=== PATIENT | female | born 1955 | race African-American/Black ===

== ENCOUNTER 2022-03-04 07:07 | Day surgery (SDC) | payer MEDICARE, SELFPAY ==
[2022-02-24 14:16] VITALS: BMI 40.9
--- NOTE | 2022-02-25 13:35 | HO.ANESPROP2 ---
Documented by User: Vicki Leyva NP 03/03/22 08:41 HPI - Anesthesia Eval Consult details Narrative: 66yo F for Colonoscopy Cardiac optimized without further work up. To stay on ASA if possible. (Abnormal nuc stress, but patient asymptomatic and tolerates >4 mets) *Multiple Med Allergy* PMFSH Active Problems Active Problems: All Active Problems (Updated 02/24/22 @ 15:22 by Barbie Gar, RN) Bilateral acute otitis media (Acute) Past Medical History Medical History Asthma Back pain Chest pain Diabetes Elevated cholesterol GERD (gastroesophageal reflux disease) HTN (hypertension) Hx of skin cancer, basal cell Irritable bowel syndrome (IBS) Lumbar disc disease DWAYNE on CPAP Surgical History Surgical History History of esophagogastroduodenoscopy (EGD) Hx of appendectomy Hx of colonoscopy Hx of partial thyroidectomy Hx of tubal ligation Social History Social History Are you a primary care director rn to a significant other at home: Yes (mother, will have help post-op) Do you presently have visiting nurse or other home services: Yes (services at home for mother) Patient Tobacco Use Status: Never used Tobacco Use of substances other than those prescribed or required for medical reasons: No Have you been hit, kicked, punched, or otherwise hurt by someone within the past year? If so, by whom?: No Are you DNR?: No Advance Directives: No Advance Directives Information Provided: No Advance Directives on File: No Meds Allergies Allergy/AdvReac Type Severity Reaction Status Date / Time cefaclor [From CECLOR] Allergy Severe ITCHING Verified 02/24/22 14:11 ciprofloxacin [CIPROFLOXACIN] Allergy Severe ITCHING Verified 02/24/22 14:11 erythromycin base Allergy Severe Itching, Verified 02/24/22 14:11 [ERYTHROMYCIN BASE] hives Penicillins [PENICILLINS] Allergy Severe ITCHING Verified 02/24/22 14:11 Sulfa (Sulfonamide Allergy Severe Itching Verified 02/24/22 14:11 Antibiotics) sulfamethoxazole Allergy Severe ITCHING Verified 02/24/22 14:11 [From BACTRIM] trimethoprim [From BACTRIM] Allergy Severe ITCHING Verified 02/24/22 14:11 amlodipine Allergy Hives Verified 02/24/22 15:21 isosorbide Allergy Headache Verified 02/24/22 15:21 magnesium sulfate Allergy Itching Verified 02/24/22 14:12 clindomycin Allergy Severe Itching Uncoded 02/24/22 14:11 IC acetic Allergy Severe Itching Uncoded 02/24/22 14:11 ENVIRONMENTAL Allergy Unknown HEADACHES Uncoded 02/24/22 14:12 Home Medications Medication Instructions Recorded Confirmed Last Taken Type acetaminophen 500 mg tablet 500 mg PO Q6-8H PRN 08/29/21 02/24/22 Unknown History albuterol sulfate 2.5 mg INHALATION Q4-8H PRN 08/29/21 02/24/22 Unknown History albuterol sulfate 90 mcg/actuation 2 puff INHALATION Q4-6H PRN 08/29/21 02/24/22 Unknown History aerosol inhaler (ProAir HFA) allopurinol 300 mg tablet 300 mg PO DAILY 08/29/21 02/24/22 Unknown History epinephrine 0.3 mg/0.3 mL 0.3 ml IM ONCE PRN 08/29/21 02/24/22 Unknown History injection, auto-injector fluticasone propionate 50 0 mcg INTRANASAL 08/29/21 Unknown History mcg/actuation nasal spray,suspension gabapentin 300 mg capsule 300 mg PO TID 08/29/21 02/24/22 Unknown History hydrochlorothiazide 25 mg tablet 25 mg PO DAILY 08/29/21 02/24/22 Unknown History losartan 50 mg tablet 50 mg PO DAILY 08/29/21 03/04/22 03/04/22 06:45 History metformin 850 mg tablet 850 mg PO TID 08/29/21 02/24/22 Unknown History montelukast 10 mg tablet 10 mg PO BEDTIME 08/29/21 02/24/22 Unknown History pravastatin 80 mg tablet 80 mg PO BEDTIME 08/29/21 02/24/22 Unknown History aspirin 81 mg tablet,delayed 81 mg PO DAILY 02/24/22 03/04/22 03/03/22 History release cetirizine 10 mg capsule (Zyrtec) 10 mg PO DAILY 02/24/22 02/24/22 Unknown History famotidine 20 mg tablet (Pepcid AC) 20 mg PO DAILY 02/24/22 02/24/22 Unknown History Exam Exam Date and Time: February 25, 2022 1335 Height,Weight and Vital Signs: Height 5 ft 5 in Weight 111.584 kg Pertinent Lab Results Pertinent Lab Results: CBC and BMP WNL at outside facility 11/2021 Narrative Narrative: EKG 11/2021 NSR @ 69 with Q waves noted in inferior leads No significant change when compared with previous Nuc stress 10/2021 small in size and moderate intensity reversible defect in apical anteroseptal wall suggestive of ischemia small in size moderate intensity fixed perfusion defect in the mid to apical inferior lateral wall with partial reversibility suggestive of an infact with johnny-infarct ischemia Assessment and Plan Assessment Anesthesia Assessment: Chart Reviewed Documented by User: Simon Amezcua MD 03/04/22 10:07 [facility] Past Medical History Medical History Asthma Back pain Chest pain Diabetes Elevated cholesterol GERD (gastroesophageal reflux disease) HTN (hypertension) Hx of skin cancer, basal cell Irritable bowel syndrome (IBS) Lumbar disc disease DWAYNE on CPAP Functional capacity: uses cane/walker Family History Family history of problems with anesthesia: No Surgical History Surgical History History of esophagogastroduodenoscopy (EGD) Hx of appendectomy Hx of colonoscopy Hx of partial thyroidectomy Hx of tubal ligation History of Problems with Anesthesia: No Social History Social History Are you a primary care director rn to a significant other at home: Yes (mother, will have help post-op) Do you presently have visiting nurse or other home services: Yes (services at home for mother) Patient Tobacco Use Status: Never used Tobacco Use of substances other than those prescribed or required for medical reasons: No Have you been hit, kicked, punched, or otherwise hurt by someone within the past year? If so, by whom?: No Are you DNR?: No Advance Directives: No Advance Directives Information Provided: No Advance Directives on File: No Meds Allergies Allergy/AdvReac Type Severity Reaction Status Date / Time cefaclor [From CECLOR] Allergy Severe ITCHING Verified 02/24/22 14:11 ciprofloxacin [CIPROFLOXACIN] Allergy Severe ITCHING Verified 02/24/22 14:11 erythromycin base Allergy Severe Itching, Verified 02/24/22 14:11 [ERYTHROMYCIN BASE] hives Penicillins [PENICILLINS] Allergy Severe ITCHING Verified 02/24/22 14:11 Sulfa (Sulfonamide Allergy Severe Itching Verified 02/24/22 14:11 Antibiotics) sulfamethoxazole Allergy Severe ITCHING Verified 02/24/22 14:11 [From BACTRIM] trimethoprim [From BACTRIM] Allergy Severe ITCHING Verified 02/24/22 14:11 amlodipine Allergy Hives Verified 02/24/22 15:21 isosorbide Allergy Headache Verified 02/24/22 15:21 magnesium sulfate Allergy Itching Verified 02/24/22 14:12 clindomycin Allergy Severe Itching Uncoded 02/24/22 14:11 IC acetic Allergy Severe Itching Uncoded 02/24/22 14:11 ENVIRONMENTAL Allergy Unknown HEADACHES Uncoded 02/24/22 14:12 Home Medications Medication Instructions Recorded Confirmed Last Taken Type acetaminophen 500 mg tablet 500 mg PO Q6-8H PRN 08/29/21 02/24/22 Unknown History albuterol sulfate 2.5 mg INHALATION Q4-8H PRN 08/29/21 02/24/22 Unknown History albuterol sulfate 90 mcg/actuation 2 puff INHALATION Q4-6H PRN 08/29/21 02/24/22 Unknown History aerosol inhaler (ProAir HFA) allopurinol 300 mg tablet 300 mg PO DAILY 08/29/21 02/24/22 Unknown History epinephrine 0.3 mg/0.3 mL 0.3 ml IM ONCE PRN 08/29/21 02/24/22 Unknown History injection, auto-injector fluticasone propionate 50 0 mcg INTRANASAL 08/29/21 Unknown History mcg/actuation nasal spray,suspension gabapentin 300 mg capsule 300 mg PO TID 08/29/21 02/24/22 Unknown History hydrochlorothiazide 25 mg tablet 25 mg PO DAILY 08/29/21 02/24/22 Unknown History losartan 50 mg tablet 50 mg PO DAILY 08/29/21 03/04/22 03/04/22 06:45 History metformin 850 mg tablet 850 mg PO TID 08/29/21 02/24/22 Unknown History montelukast 10 mg tablet 10 mg PO BEDTIME 08/29/21 02/24/22 Unknown History pravastatin 80 mg tablet 80 mg PO BEDTIME 08/29/21 02/24/22 Unknown History aspirin 81 mg tablet,delayed 81 mg PO DAILY 02/24/22 03/04/22 03/03/22 History release cetirizine 10 mg capsule (Zyrtec) 10 mg PO DAILY 02/24/22 02/24/22 Unknown History famotidine 20 mg tablet (Pepcid AC) 20 mg PO DAILY 02/24/22 02/24/22 Unknown History Exam Airway Mallampati Class: III Partial: Upper and Lower Loose/Missing/Broken Teeth: Yes Heart: S1 , S2 Lungs: b/l breath sounds Assessment and Plan Assessment Anesthesia Assessment: Anesthesia Plan Discussed Final Anesthetic Review Family History of Problems with Anesthesia: No History of Problems with Anesthesia: No NPO: Yes ASA Class: III Final Preanesthetic Review: Meds/Allgs Chart Reviewed, Consent Obtained/Reviewed and Anes Risks/Benef Reviewed Patient Risk: High Procedure Risk: Intermediate Anesthetic Plan Anesthetic Plan: MAC: Disposition: Standard PACU
[2022-03-04 07:59] LABS: Glucose, Whole Blood 170 mg/dL (60-115)
[2022-03-04 08:07] VITALS: BP 145/90; PULSE 82; RESP 18; TEMP 36.4; O2SAT 99
--- NOTE | 2022-03-04 08:34 | PC.NURSE ---
Difficult IV access, attempted by Anesthesia, inserted by Ever Cao RN
[2022-03-04] MEDS: Lactated Ringers 1,000 ML 100 ML IVCONT (08:35)
[2022-03-04 09:42] VITALS: BP 105/51; PULSE 104; RESP 16; TEMP 36.3; O2SAT 97
--- NOTE | 2022-03-04 09:46 | PM.OP ---
Brief Operative Note Date of Service: 03/04/22 Pre-op diagnosis: Screening Post-op diagnosis: other (Colon polyps) Procedure: Colonoscopy to the cecum with hot snare polypectomy x3 with placement of 1 Resolution clip x 3--all in the transverse colon Surgeon: Norman Aquino Anesthesia: MAC Was an Broaching Machine Set Up Operator used for this Procedure?: No Estimated blood loss (mL): 0 Pathology: other (A. Transverse colon polyps x 3) Condition: stable Disposition: PACU
[2022-03-04 09:57] VITALS: BP 119/64; PULSE 98; RESP 18; TEMP 36.7; O2SAT 97
--- NOTE | 2022-03-04 20:46 | OP_ITS ---
SURGEON: Norman Aquino MD INDICATIONS: The patient presents for evaluation of personal history of tubular adenomas of the colon and colorectal cancer screening. Full consent has been obtained from her for this, including risks of bleeding and perforation. Full consent has been obtained from her for this, including risks of bleeding and perforation. PREOPERATIVE DIAGNOSIS: Colorectal cancer screening and personal history of tubular adenomas of the colon. POSTOPERATIVE DIAGNOSIS: Colorectal cancer screening and personal history of tubular adenomas of the colon, colon polyps, diverticulosis, and internal hemorrhoids. PROCEDURE PERFORMED: Colonoscopy to the cecum with hot snare polypectomy x 3 and placement of a resolution clip on each polypectomy site. ESTIMATED BLOOD LOSS: COMPLICATIONS: ANESTHESIA: Medication used, monitored anesthesia care. ASSISTANTS: SPECIMENS: DESCRIPTION OF PROCEDURE: The patient was placed in the left lateral decubitus position the digital rectal exam revealed no abnormalities. The [employer] video pediatric colonoscope was entered into the rectum and advanced to the cecum with the assistance of abdominal wall pressure. Once in the cecum I did identify normal-appearing cecal pouch with appendiceal orifice and a normal-appearing ileocecal valve. The entire cecum and ileocecal valve appeared normal. The scope was slowly withdrawn assessing all mucosal surfaces carefully. Preparation was excellent. In the transverse colon was a previously noted lipoma that had been biopsied on previous exams, and therefore repeat biopsies were not obtained. In the transverse colon were 3 polyps. One was approximately 8 mm and was removed by hot snare polypectomy and recovered by suction. The polypectomy site appeared clean, without any sign of residual polyp nor bleeding. I did place a single resolution clip on the polypectomy site with good deployment and good hemostasis. Just distal to this were 2 approximately 1.2 cm polyps on short stalks that were adjacent to each other. These were each removed by hot snare polypectomy, and both polyps were retrieved with the retrieval net and drawn out of the patient. The colonoscope was then readvanced back to the polypectomy site, which appeared clean, without any sign of residual polyp nor bleeding. I placed a single resolution clip on each of the polypectomy sites with good deployment and good hemostasis. Of note, all 3 polyps were placed in the same container. I did not visualize any other polyps, colitis, nor angiodysplasia. There was a mild amount of sigmoid diverticulosis. In the rectum, the scope was retroflexed visualizing internal hemorrhoids, but no other pathology. The rectal mucosa appeared normal. Scope was straightened and withdrawn from the patient. She tolerated the procedure well and was returned to the recovery area in stable condition. IMPRESSION: 1. Colon polyps, status post hot snare polypectomy and placement of resolution clips. 2. Diverticulosis. 3. Internal hemorrhoids. PLAN: The results of the pathology will be checked, I would recommend a repeat colonoscopy in 3 years for further screening and surveillance. She was advised to resume her aspirin in 48 hours. She will otherwise see me on a p.r.n. basis. This has been discussed with her . MD ADILENE Kemp/HALEY / [id number] MTDD
== END 2022-03-04 10:37 | disposition home or self-care (01) ==
PROVIDERS: PCP Internal Medicine; Visit Provider Internal Medicine
PROC: 0DJD8ZZ Inspection of Lower Intestinal Tract, Via Natural or Artificial Opening Endoscopic (ICD-10-PCS; CPT 45378; principal; 2022-03-04 08:20)
DX: Z12.11 Encounter for screening for malignant neoplasm of colon (principal); Z86.010 Personal history of colon polyps; D12.3 Benign neoplasm of transverse colon; K57.30 Diverticulosis of large intestine without perforation or abscess without bleeding; K64.8 Other hemorrhoids; K58.2 Mixed irritable bowel syndrome; K21.9 Gastro-esophageal reflux disease without esophagitis; D17.5 Benign lipomatous neoplasm of intra-abdominal organs; G47.33 Obstructive sleep apnea (adult) (pediatric); I10 Essential (primary) hypertension; E78.5 Hyperlipidemia, unspecified; J45.909 Unspecified asthma, uncomplicated; E11.9 Type 2 diabetes mellitus without complications; Z79.82 Long term (current) use of aspirin; Z79.51 Long term (current) use of inhaled steroids; Z79.84 Long term (current) use of oral hypoglycemic drugs; Z86.16 Personal history of COVID-19
CPT/HCPCS: 45385; 82947; 88305; J2370

== ENCOUNTER 2023-10-12 07:43 | Outpatient (REF) | payer MEDICARE, SELFPAY ==
--- NOTE | ~2023-10-12 | XR_ITS ---
EXAMINATION: XR HIP, RIGHT CLINICAL INFORMATION: Right hip pain COMPARISON: 04/25/2018 pelvis TECHNIQUE: Two views of the right hip. FINDINGS: Moderate right hip joint narrowing and right greater trochanteric spurring again seen. No fracture or dislocation. Bony pelvis is intact. Degenerative changes lower lumbar spine. SI joints within normal limits. Pelvic phleboliths. XR/XR hip RT min 2V IMPRESSION: Moderate right hip joint narrowing and right greater trochanteric spurring. No acute bony pathology.
== END 2023-10-12 07:44 | disposition home or self-care (01) ==
LOC: HO.HOSX 07:43
PROVIDERS: Visit Provider Orthopaedic Surgery
DX: M16.11 Unilateral primary osteoarthritis, right hip (principal)
CPT/HCPCS: 73502; 99202

== ENCOUNTER 2023-10-12 10:10 | Outpatient (AMB) | payer MEDICARE, SELFPAY ==
--- NOTE | 2023-10-12 10:31 | MHC.OFFVIS ---
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 Patient reports cortisone injection was done about 15 years ago at [facility] that provided her relief until recently. She is interested in discussing injection today. She has tried Tylenol and anti-inflammatory medicines which gave her only mild relief. She would like to hold off on surgery for as possible. Allergies cefaclor [From CECLOR] Allergy (Severe, Verified 10/12/23 10:58) ITCHING ciprofloxacin [CIPROFLOXACIN] Allergy (Severe, Verified 10/12/23 10:58) ITCHING erythromycin base [ERYTHROMYCIN BASE] Allergy (Severe, Verified 10/12/23 10:58) Itching, hives Penicillins [PENICILLINS] Allergy (Severe, Verified 10/12/23 10:58) ITCHING Sulfa (Sulfonamide Antibiotics) Allergy (Severe, Verified 10/12/23 10:58) Itching sulfamethoxazole [From BACTRIM] Allergy (Severe, Verified 10/12/23 10:58) ITCHING trimethoprim [From BACTRIM] Allergy (Severe, Verified 10/12/23 10:58) ITCHING amlodipine Allergy (Verified 10/12/23 10:58) Hives clindamycin Allergy (Verified 10/12/23 10:58) Itching insulin detemir [From Levemir U-100 Insulin] Allergy (Verified 10/12/23 10:58) muscle cramping isosorbide Allergy (Verified 10/12/23 10:58) Headache liraglutide [From Victoza] Allergy (Verified 10/12/23 10:58) dizzy magnesium sulfate Allergy (Verified 10/12/23 10:58) Itching pregabalin [From Lyrica] Allergy (Verified 10/12/23 10:58) burning sensation on skin sucralfate [From Carafate] Allergy (Verified 10/12/23 10:58) hives/urticaria IC acetic Allergy (Severe, Uncoded 10/12/23 10:58) Itching ENVIRONMENTAL Allergy (Unknown, Uncoded 10/12/23 10:58) HEADACHES lantus Allergy (Uncoded 10/12/23 10:58) Muscle Pain vitamin B12 Allergy (Uncoded 10/12/23 10:58) Unknown Medication List - Last Reconciled 10/12/23 by Arturo Page MD acetaminophen 500 mg PO Q6-8H PRN albuterol sulfate 90 mcg/actuation (ProAir HFA) 2 puffs inhalation Q4-6H PRN albuterol sulfate 2.5 mg inhalation Q4-8H PRN allopurinol 300 mg PO DAILY aspirin 81 mg PO DAILY cetirizine (Zyrtec) 10 mg PO DAILY doxycycline hyclate 100 mg PO BID 7 days epinephrine 0.3 mL IM ONCE PRN famotidine (Pepcid AC) 20 mg PO DAILY fluticasone propionate 50 mcg/actuation 0 mcg intranasal gabapentin 300 mg PO TID hydrochlorothiazide 25 mg PO DAILY lancets (Accu-Chek Softclix Lancets) As directed losartan 50 mg PO DAILY metformin 850 mg PO TID montelukast 10 mg PO BEDTIME nifedipine ER 30 mg PO DAILY pravastatin 80 mg PO BEDTIME PFSH Medical History (Updated 10/12/23 @ 11:04 by Arturo Page MD) Chest pain Hx of skin cancer, basal cell Back pain Lumbar disc disease Diabetes Irritable bowel syndrome (IBS) GERD (gastroesophageal reflux disease) DWAYNE on CPAP Asthma Elevated cholesterol HTN (hypertension) Surgical History Hx of tubal ligation Hx of appendectomy Hx of partial thyroidectomy Hx of colonoscopy History of esophagogastroduodenoscopy (EGD) (Updated 10/12/23 @ 10:47 by ISREAL Brown) Are you a primary health care marketing manager to a significant other at home: Yes (mother, will have help post-op) Do you presently have visiting nurse or other home services: Yes (services at home for mother) Patient Tobacco Use Status: Never used Tobacco Current occupational status: retired Physical Exam Vital Signs: BMI result Body Mass Index 39.3 Const Other: Well-nourished well-developed very friendly female awake alert and oriented x3 in no acute distress Extrem Other: Bilateral lower extremity examination shows good capillary refill, no skin lesions noted, normal sensation light touch Right hip examination shows almost full range of motion when compared to her left hip, moderate discomfort with range of motion, no tenderness over her bursa Results Reviewed Results Reviewed: X-rays of the patient's right hip show moderate diffuse joint space narrowing, no acute bony abnormalities Assessment & Plan Assessment & Plan (1) Arthritis of right hip: Code(s): M16.11 - Unilateral primary osteoarthritis, right hip Plan: Ms. Perales presents with right hip pain due to early degenerative joint disease. I had a lengthy discussion with the patient regarding the treatment options. She wishes to hold off on surgery for as long as possible. She has gotten good relief from an intra-articular injection in the past. Thus, I will arrange for her to have another intra-articular right hip injection under fluoroscopic guidance. She will follow up with me on an as-needed basis. Feel free to call me at any time should questions regarding her orthopedic management arise. Thank you very much for asking me to see this very friendly patient. Orders: Orders XR hip RT min 2V Today M25.551 - Pain in right hip Referrals Pain Management Referral M16.11 - Unilateral primary osteoarthritis, right hip Coding Level of Care Code New Pt Level 2 (47315) Diagnoses Arthritis of right hip M16.11
[2023-10-12 10:48] VITALS: BMI 39.3
== END 2023-10-12 11:05 | disposition home or self-care (01) ==
PROVIDERS: PCP Internal Medicine; Visit Provider Orthopaedic Surgery
DX: M16.11 Unilateral primary osteoarthritis, right hip (principal)
CPT/HCPCS: 99202

== ENCOUNTER 2023-11-10 05:39 | Outpatient (REF) | payer MEDICARE, SELFPAY ==
--- NOTE | ~2023-11-10 | FL_ITS ---
EXAMINATION: XR FLUOROSCOPY WITH IMAGES CLINICAL INFORMATION: Unilateral primary osteoarthritis, right hip. Right hip injection. COMPARISON: None available. TECHNIQUE: Fluoroscopy Supervised By: Dr. Billy Jackson. Fluoroscopy Time: 0.1 minute. Cumulative Dose: 3.40 mGy. DAP: 0.645 Gycm2. Images: 3. FINDINGS: Images demonstrate needle placement and contrast injection of the right hip joint FL/FL guidance in treatment room IMPRESSION: Fluoroscopic guidance for right hip injection.
== END 2023-11-10 05:40 | disposition home or self-care (01) ==
LOC: CF 05:39
PROVIDERS: Visit Provider Internal Medicine
DX: M16.11 Unilateral primary osteoarthritis, right hip (principal)
CPT/HCPCS: 20610; J2795; J3301; Q9967

== ENCOUNTER 2023-11-10 09:38 | Outpatient (AMB) | payer MEDICARE, SELFPAY ==
[2023-11-10 09:43] VITALS: BP 130/66; PULSE 78; RESP 12; O2SAT 98
--- NOTE | 2023-11-10 09:43 | MHC.OFFVIS ---
Intake Vital Signs 11/10/23 09:43 11/10/23 10:31 BP 130/66 120/64 Blood Pressure Location Lt brachial Lt brachial Position Sitting Sitting Respiration 12 12 Pulse 78 78 Pulse Source Pulse Oximeter Pulse Oximeter Pulse Oximetry (%) 98 98 Oxygen Delivery Method Room Air Room Air Intake Visit Reasons: Right intraarticular hip Inj Allergies cefaclor [From CECLOR] Allergy (Severe, Verified 11/10/23 09:43) ITCHING ciprofloxacin [CIPROFLOXACIN] Allergy (Severe, Verified 11/10/23 09:43) ITCHING erythromycin base [ERYTHROMYCIN BASE] Allergy (Severe, Verified 11/10/23 09:43) Itching, hives Penicillins [PENICILLINS] Allergy (Severe, Verified 11/10/23 09:43) ITCHING Sulfa (Sulfonamide Antibiotics) Allergy (Severe, Verified 11/10/23 09:43) Itching sulfamethoxazole [From BACTRIM] Allergy (Severe, Verified 11/10/23 09:43) ITCHING trimethoprim [From BACTRIM] Allergy (Severe, Verified 11/10/23 09:43) ITCHING amlodipine Allergy (Verified 11/10/23 09:43) Hives clindamycin Allergy (Verified 11/10/23 09:43) Itching insulin detemir [From Levemir U-100 Insulin] Allergy (Verified 11/10/23 09:43) muscle cramping isosorbide Allergy (Verified 11/10/23 09:43) Headache liraglutide [From Victoza] Allergy (Verified 11/10/23 09:43) dizzy magnesium sulfate Allergy (Verified 11/10/23 09:43) Itching pregabalin [From Lyrica] Allergy (Verified 11/10/23 09:43) burning sensation on skin sucralfate [From Carafate] Allergy (Verified 11/10/23 09:43) hives/urticaria IC acetic Allergy (Severe, Uncoded 11/10/23 09:43) Itching ENVIRONMENTAL Allergy (Unknown, Uncoded 11/10/23 09:43) HEADACHES lantus Allergy (Uncoded 11/10/23 09:43) Muscle Pain vitamin B12 Allergy (Uncoded 11/10/23 09:43) Unknown HPI Right intraarticular hip Inj HPI Details Patient is a 68-year-old female with a known history of right hip osteoarthritis referred by Dr. Page for an intra-articular right hip injection under fluoroscopy. Patient denies any recent cough, cold, infection, fever or other significant changes in medical history since her meeting with Dr. Page. [facility] Medical History (Updated 10/12/23 @ 11:04 by Arturo Page MD) Chest pain Hx of skin cancer, basal cell Back pain Lumbar disc disease Diabetes Irritable bowel syndrome (IBS) GERD (gastroesophageal reflux disease) DWAYNE on CPAP Asthma Elevated cholesterol HTN (hypertension) Surgical History Hx of tubal ligation Hx of appendectomy Hx of partial thyroidectomy Hx of colonoscopy History of esophagogastroduodenoscopy (EGD) Social History (Updated 10/12/23 @ 10:47 by ISREAL Brown) Are you a primary care transition manager to a significant other at home: Yes (mother, will have help post-op) Do you presently have visiting nurse or other home services: Yes (services at home for mother) Patient Tobacco Use Status: Never used Tobacco Current occupational status: retired Physical Exam Vital Signs: Last Vital Signs Pulse 78 11/10/23 10:31 Resp 12 11/10/23 10:31 BP 120/64 11/10/23 10:31 Pulse Ox 98 11/10/23 10:31 Oxygen Delivery Method Room Air 11/10/23 10:31 Office Procedures Joint Injection/Drain Joint Injection/Drain Details: Hip Intra-articular Injection, fluoroscopy guided, Right After informed written consent was obtained, the patient was placed in the left lateral position. Pre-procedure oxygen saturation, heart rate, and blood pressure were recorded. The skin was prepped with Chloroprep, and draped in a sterile fashion. With the use of fluroscopy the hip joint was identified. With a 25-gauge 1.5 hypodermic needle 0.75% lidocaine was injected subcutaneously over the entry site. A 22-gauge 3.5 spinal needle was then advanced toward the junction of the joint capsule and femoral neck, using a lateral access approach. Once in position, and after negative aspiration, 0.5mL of Omnipaque was injected outlining the joint capsule followed by injection of 40mg Kenalog mixed with 0.5% ropivacaine (3mL total). There was no evidence of paresthesias throughout needle placement. The stylet was replaced and then the needle was withdrawn. The patient tolerated the procedure well and there was no evidence of procedural complications. EBL: <1cc Coding 41879 - Glenohumeral/Tronchanteric Bursa/Intraarticular Procedure code (CPT) selection complete Assessment & Plan Assessment & Plan (1) Arthritis of right hip: Code(s): M16.11 - Unilateral primary osteoarthritis, right hip Plan Patient is status post right hip intra-articular triamcinolone injection under fluoroscopic guidance. Patient tolerated procedure well and was discharged home in stable condition with discharge instructions. All questions were answered. She will follow-up with us or Dr. Page as needed. Orders: Orders FL guidance in treatment room Today M16.11 - Unilateral primary osteoarthritis, right hip Coding Level of Care Code Procedure Only Diagnoses Arthritis of right hip M16.11 CPT Codes Coding - Joint 7: 93320 - Glenohumeral/Tronchanteric Bursa/Intraarticular ([id number])
[2023-11-10 10:31] VITALS: BP 120/64; PULSE 78; RESP 12; O2SAT 98
== END 2023-11-10 10:29 | disposition home or self-care (01) ==
LOC: HO.PMCPRC 09:38
PROVIDERS: PCP Internal Medicine; Visit Provider Internal Medicine
DX: M16.11 Unilateral primary osteoarthritis, right hip (principal)
CPT/HCPCS: 20610; 77002

== ENCOUNTER 2023-11-22 09:32 | Outpatient (AMB) | payer MEDICARE, SELFPAY ==
--- NOTE | 2023-11-22 09:34 | MHC.OFFVIS ---
Intake Vital Signs 11/22/23 09:42 Height 5 ft 5.5 in Weight 237 lb BMI 38.8 Blood Pressure Location Lt brachial Position Sitting Respiration 12 Pulse 84 Pulse Source Pulse Oximeter Pulse Oximetry (%) 97 Oxygen Delivery Method Room Air Intake Visit Reasons: Unilateral Primary Osteoarthritis/Right Hip/conf Allergies cefaclor [From CECLOR] Allergy (Severe, Verified 11/22/23 09:43) ITCHING ciprofloxacin [CIPROFLOXACIN] Allergy (Severe, Verified 11/22/23 09:43) ITCHING erythromycin base [ERYTHROMYCIN BASE] Allergy (Severe, Verified 11/22/23 09:43) Itching, hives Penicillins [PENICILLINS] Allergy (Severe, Verified 11/22/23 09:43) ITCHING Sulfa (Sulfonamide Antibiotics) Allergy (Severe, Verified 11/22/23 09:43) Itching sulfamethoxazole [From BACTRIM] Allergy (Severe, Verified 11/22/23 09:43) ITCHING trimethoprim [From BACTRIM] Allergy (Severe, Verified 11/22/23 09:43) ITCHING amlodipine Allergy (Verified 11/22/23 09:43) Hives clindamycin Allergy (Verified 11/22/23 09:43) Itching insulin detemir [From Levemir U-100 Insulin] Allergy (Verified 11/22/23 09:43) muscle cramping isosorbide Allergy (Verified 11/22/23 09:43) Headache liraglutide [From Victoza] Allergy (Verified 11/22/23 09:43) dizzy magnesium sulfate Allergy (Verified 11/22/23 09:43) Itching pregabalin [From Lyrica] Allergy (Verified 11/22/23 09:43) burning sensation on skin sucralfate [From Carafate] Allergy (Verified 11/22/23 09:43) hives/urticaria IC acetic Allergy (Severe, Uncoded 11/22/23 09:43) Itching ENVIRONMENTAL Allergy (Unknown, Uncoded 11/22/23 09:43) HEADACHES lantus Allergy (Uncoded 11/22/23 09:43) Muscle Pain vitamin B12 Allergy (Uncoded 11/22/23 09:43) Unknown Medication List - Last Reconciled 11/22/23 by Clary Nicholson LPN acetaminophen 500 mg PO Q6-8H PRN albuterol sulfate 90 mcg/actuation (ProAir HFA) 2 puffs inhalation Q4-6H PRN albuterol sulfate 2.5 mg inhalation Q4-8H PRN allopurinol 300 mg PO DAILY aspirin 81 mg PO DAILY cetirizine (Zyrtec) 10 mg PO DAILY epinephrine 0.3 mL IM ONCE PRN lancets (Accu-Chek Softclix Lancets) As directed losartan 50 mg PO DAILY metformin 850 mg PO TID montelukast 10 mg PO BEDTIME nifedipine ER 30 mg PO DAILY pantoprazole 40 mg PO DAILY pravastatin 80 mg PO BEDTIME HPI Unilateral Primary Osteoarthritis/Right Hip/conf HPI Details 68-year-old female who presents today to the office for follow-up after a right hip intra-articular corticosteroid injection. The patient reports 90 % relief following the procedure. She states that her pain prior to the procedure was significantly improved. She has no other concerns today. She has been receiving cortisone injections in her knees at [facility] in [place], and her last injection was last summer. She never had knee replacement surgery. She has not tried hyaluronic acid injections in the past. Past procedure: 11/10/23: Hip Intra-articular Injection, fluoroscopy guided, Right: 90% relief. [facility] Medical History (Updated 10/12/23 @ 11:04 by Arturo Page MD) Chest pain Hx of skin cancer, basal cell Back pain Lumbar disc disease Diabetes Irritable bowel syndrome (IBS) GERD (gastroesophageal reflux disease) DWAYNE on CPAP Asthma Elevated cholesterol HTN (hypertension) Surgical History Hx of tubal ligation Hx of appendectomy Hx of partial thyroidectomy Hx of colonoscopy History of esophagogastroduodenoscopy (EGD) Social History (Updated 10/12/23 @ 10:47 by ISREAL Brown) Are you a primary managed care specialist to a significant other at home: Yes (mother, will have help post-op) Do you presently have visiting nurse or other home services: Yes (services at home for mother) Patient Tobacco Use Status: Never used Tobacco Current occupational status: retired Review of Systems Const All systems reviewed & are unremarkable except as noted in HPI and below Physical Exam Vital Signs: Last Vital Signs Pulse 84 11/22/23 09:42 Resp 12 11/22/23 09:42 Pulse Ox 97 11/22/23 09:42 Oxygen Delivery Method Room Air 11/22/23 09:42 BMI result Body Mass Index 38.8 General: Appears afebrile. Alert and oriented. Mood and affect appropriate. Follows and participates in conversation appropriately. Respiratory effort is unlabored. Able to transition from sit to stand unassisted. Ambulates with bilaterally normal heel strike and toe off. Results Reviewed Results Reviewed: 10/12/23: XR HIP, RIGHT FINDINGS: Moderate right hip joint narrowing and right greater trochanteric spurring again seen. No fracture or dislocation. Bony pelvis is intact. Degenerative changes lower lumbar spine. SI joints within normal limits. Pelvic phleboliths. IMPRESSION: Moderate right hip joint narrowing and right greater trochanteric spurring. No acute bony pathology. Assessment & Plan Assessment & Plan (1) Arthritis of right hip: Code(s): M16.11 - Unilateral primary osteoarthritis, right hip Plan I recommended trying DAMICO injections instead of cortisone injections for her knee pain the minimized total steroid intake since she may be needing regular intra-articular corticosteroids in the hip as well going forward. The patient can reach out to us if and when she needs a repeat injection in her hip or her knees. Patient expressed understanding. Scribed for Dr. Jackson by Dave Butler, medical genetics director, on 11/22/2022. I, Dr. Jackson, have personally reviewed and agree with the information entered by the scribe. Coding Level of Care Code Est Pt Level 3 (98939) Diagnoses Arthritis of right hip M16.11
[2023-11-22 09:42] VITALS: PULSE 84; RESP 12; O2SAT 97; BMI 38.8
== END 2023-11-22 10:38 | disposition home or self-care (01) ==
PROVIDERS: PCP Internal Medicine; Referring Provider Orthopaedic Surgery; Visit Provider Internal Medicine
DX: M16.11 Unilateral primary osteoarthritis, right hip (principal)
CPT/HCPCS: 99213

== ENCOUNTER → 2023-11-22 09:32 | Outpatient (BNVA) | payer MEDICARE, SELFPAY | PROVIDERS: PCP Internal Medicine; Visit Provider Internal Medicine | DX: M16.11 Unilateral primary osteoarthritis, right hip (principal) | CPT/HCPCS: 99212 ==

== ENCOUNTER 2025-08-03 09:42 | Day surgery (SDC) | payer MEDICARE, SELFPAY ==
[2025-08-01 14:26] VITALS: BMI 41.4
--- OUTSIDE RECORDS SUMMARY | 2025-08-02 13:34 | XMS_ITS ---
Continuity of Care Document (CCD) Created on: August 02, 2025 Kika Perales External Reference #: [id number] : [id number] Sex: Female Author Organization [facility] [address] [place] [address] Phone [phone] Care Team Providers Care [employer] Shaper Operator Name Role Phone Roz Camargo M.D. Care Team Information Clinical Orthoptist + [phone] Problems Active Problems Provider Date Multinodular goiter Wicho Washington M.D. Onse t: 04/28/2023 Essential hypertension Wicho Washington M.D. O nset: 04/28/2023 Type 2 diabetes mellitus Wicho Washington M.D. Onset: 04/28/2023 Hypercholesterolemia Wicho Washington M.D. Ons et: 04/28/2023 Tubular adenoma Wicho Washington M.D. Onset: 0 04/28/2023 Hyperlipidemia Wicho Washington M.D. Onset: 0 04/28/2023 Obstructive sleep apnea syndrome Wicho belcher M.D. Onset: 04/28/2023 Chronic kidney disease Wicho Washington M.D. O nset: 04/28/2023 Gastroesophageal reflux disease Wicho fox M.D. Onset: 04/28/2023 Irritable bowel syndrome Wicho Washington M.D. Onset: 04/28/2023 H/O: gout Wicho Washington M.D. Onset: 0 04/28/2023 Social History Type Date Description Comments Sex Female Sex Unknown Tobacco Use Start: Unknown Never Smoked Cigarettes ETOH Use Rarely consumes alcohol Allergies and adverse reactions Active Allergies Criticality Reaction Severity Comments Date Ceclor Unable to assess criticality 04/28/2023 Erythromycin Unable to assess criticality 04/28/2023 Penicillins Unable to assess criticality 04/28/2023 Bactrim Unable to assess criticality 04/28/2023 Ciprofloxacin Unable to assess criticality 04/28/2023 Clindamycin Unable to assess criticality 04/28/2023 Lantus Unable to assess criticality 04/28/2023 Omeprazole Unable to assess criticality 04/28/2023 Magnesium Unable to assess criticality 04/28/2023 Vitamin B 12 Unable to assess criticality 04/28/2023 Victoza Unable to assess criticality 04/28/2023 Medications Active Medications SIG Qnty Indications Ordering Provider Date Metformin [id number] Tablets 1 by mouth twice a day Wicho Washington M.D. 05/02/2025 Metoclopramide [id number] Tablets Take 1 Tablet By Mouth Four Times Daily Before Meals And AT Night Unknown Pantoprazole [id number] Tablets DR Take 1 Tab By Mouth Daily In The Morning On Empty Stomach, Wait 30 Mins + Then E Unknown [id number] Tablets Take 1/2 Tablet By Mouth Daily Unknown Pravastatin [id number] Tablets Take 1 Tablet By Mouth AT Bedtime Unknown Nifedipine ER30mg Tablets ER 24HR Take 1 Tablet By Mouth Daily Luan Gutierrez MD Vital Signs Date Vital Result Comment 05/02/2025 9:09am BP Systolic 138 mmHg BP Diastolic 70 mmHg Heart Rate 72 /min Height 65.5 inches 5'5.50 Weight 247.50 lb BMI (Body Mass Index) 40.6 kg/m2 Results Test Acquired Date Facility Test Result H/L Range N ote TSH Rfx on Abnormal to Free T4 05/02/2025 [facility] TSH Rfx on Abnormal to Free T4 1.950 uIU/mL 0.450-4.50 0 TSH Rfx on Abnormal to Free T4 05/01/2024 [facility] TSH Rfx on Abnormal to Free T4 1.560 uIU/mL 0.450-4.50 0 TSH With Reflex To FT4 04/28/2023 [facility] TSH With Reflex To FT4 1.22 uIU/mL (0.4-4.2) Medical Devices Description No Information Available Encounters Type Date Location Provider Dx Diagnosis Office Visit 05/02/2025 9:15a Main Office Wicho Washington M.D. E04.2 Nontoxic multinodular goiter Assessments Date Code Description Provider 05/02/2025 E04.2 Nontoxic multinodular goiter Wicho Washington M.D. Plan of Treatment Future Appointment(s):* 05/06/2026 8:15 am - Wicho Washington M.D. at Main Office 05/02/2025 - Wicho Washington M.D.* E04.2 Nontoxic multinodular goiter * Functional Status Description No Information Available Mental Status Description No Information Available Referrals Description No Information Available
--- OUTSIDE RECORDS SUMMARY | 2025-08-02 13:34 | XMS_ITS | Clinical Summary ---
Author Organization [facility] [address] [place] [address] [address] [place] [address] Phone Care Team Providers Care Resourcing Advisor Name Role Phone Imelda Camargo MD Primary Care Provider [phone] Allergies Active Allergy Reactions Criticality Noted Date Comments Sulfamethoxazole-Trimethoprim 2024 Cefaclor 12/18/2024 Ciprofloxacin 12/18/2024 Clindamycin 12/18/2024 Erythromycin 12/18/2024 Penicillins Itching 11/23/2024 Liraglutide Dizziness Low 06/25/2025 Medications pantoprazole (PROTONIX) 40 mg EC tablet TAKE 1 TAB BY MOUTH DAILY IN THE MORNING ON EMPTY STOMACH, WAIT 30 MINS + THEN EAT TO ACTIVATE MED 90 tablet 5 4 Active albuterol HFA (ProAir HFA) 90 mcg/actuation inhaler Inhale 2 puffs by mouth. 2 Active aspirin 81 mg EC tablet 1 tablet (81 mg total) 1 (one) time each day. Active cholecalciferol (VITAMIN D-3) 50 mcg (2,000 unit) tablet Take 1 tablet (2,000 Units total) by mouth 1 (one) time each day. Active NIFEdipine (ADALAT CC) 30 mg 24 hr tablet Take 1 tablet (30 mg total) by mouth 1 (one) time each day. 90 tablet 3 5 12/18/19 26 Active fluticasone propionate (FLONASE) 50 mcg/actuation nasal spray SHAKE LIQUID AND USE 1 SPRAY IN EACH NOSTRIL TWICE DAILY 48 g 5 Active metoclopramide (REGLAN) 10 mg tabletIndication s:Irritable bowel syndrome, unspecified type Take 1 tablet (10 mg total) by mouth 4 (four) times a day (before meals and nightly). 360 tablet 1 5 Active conjugated estrogens (Premarin) vaginal cream PLACE 0.5 GRAMS VAGINALLY 3 TIMES A WEEK 30 g 1 5 Active metFORMIN (GLUCOPHAGE) 1,000 mg tablet Take 1 tablet (1,000 mg total) by mouth 2 (two) times a day with meals. 180 each 1 5 Active magnesium oxide (MAG-OX) 400 mg magnesium tablet Take 1 tablet (400 mg total) by mouth 2 (two) times a day. 180 tablet 3 5 Active allopurinoL (ZYLOPRIM) 100 mg tablet TAKE 1/2 TABLET(50 MG) BY MOUTH 1 TIME EACH DAY 45 tablet 1 5 Active pravastatin (PRAVACHOL) 80 mg tablet TAKE 1 TABLET(80 MG) BY MOUTH AT BEDTIME 90 tablet 1 5 Active diclofenac (VOLTAREN) 1 % topical gel Apply 2 g topically 2 (two) times a day. 5 Active blood sugar diagnostic (Accu-Chek Radha Plus test strp) test strip 1 each by Other route 1 (one) time each day before breakfast. 100 each 5 Active glipiZIDE (GLUCOTROL) 5 mg tablet Take 1 tablet (5 mg total) by mouth 1 (one) time each day. 90 each 1 5 Active montelukast (SINGULAIR) 10 mg tablet Take 1 tablet (10 mg total) by mouth at bedtime. 30 each 5 06/25/20 26 Active Active Problems Problem Noted Date Diagnosed Date DM (diabetes mellitus), type 2 with renal complications ([facility] V24, [facility] V28) 11/23/2024 Morbid obesity with BMI of 4 0.0-44.9, adult ([facility] V24, [facility] V28) 11/07/2024 Cataract 10/10/2024 Fatty liver 10/10/2024 Gastroparesis 10/10/2024 Left-sided tinnitus 04/19/2024 COVID-19 virus infection 02/24/2022 Overview (10/10/2024): 12/06 Vitamin B12 deficiency 03/21/2021 IBS (irritable bowel syndrome) 05/30/2019 Asthma 11/22/2018 Goiter diffuse, nontoxic 05/26/2018 Overview (10/10/2024): S/p right hemithyroidectomy. Left goiter. Follows with Dr. Washington Restrictive lung disease secondary to obesity GERD (gastroesophageal reflux disease) 7 Gout 12/07/2016 Type II diabetes mellitus wi th neurological manifestations ([facility] V24, [facility] V28) 12/07/2016 Tubular adenoma 11/02/2016 Overview (10/10/2024): Repeat in 3 years (due February 2025) CKD (chronic kidney disease) stage 3, GFR 30-59 ml/min ([facility] V24, [facility] V28) 07/31/2013 Microalbuminuria 07/31/2013 Peripheral neuropathy 07/31/2013 Overview (10/10/2024): Bilateral feet. DWAYNE (obstructive sleep apnea) 07/15/2006 Allergic rhinitis 03/02/2006 Essential hypertension, benign 03/02/2006 Lumbago 03/02/2006 Mixed hyperlipidemia 03/02/2006 History of basal cell carcinoma Overview (11/07/2024): : BCC 07/03 left lower lid/cheek junction (nodular) and right upper eyelid (BCC with a concomitant hydrocystoma favored ... there was an atypical apocrine neoplasm arising within the hydrocystoma) Resolved Problems Problem Noted Date Diagnosed Date Resolved Date Basal cell carcinoma 12/10/2021 024 Encounters Date Type Department Care Team Description 06/28/2025 11:35 AM EDT Ancillary Procedure Orthopedic Surgery - [place] [address] [facility] [address] [place] [address] 06/28/2025 11:15 AM EDT Procedure visit Orthopedic Surgery [facility] [address] [facility] 160 [place] [address] Julieta Kilgore MD Chronic left shoulder pain (Primary Dx) 06/25/2025 9:30 AM EDT Office Visit Adult Medicine [address] [phone] Imelda Camargo MD Essential hypertension, benign (Primary Dx); Mixed hyperlipidemia; Type II diabetes mellitus with neurological manifestations ([facility] V24, [facility] V28); Vitamin B12 deficiency; Stage 3a chronic kidney disease ([facility] V24, [facility] V28); Allergic rhinitis, unspecified seasonality, unspecified trigger 06/25/2025 Telephone [facility] 175 [facility] [address] [place] [address] Mis Espinoza MD 06/19/2025 3:25 PM EDT Ancillary Procedure Orthopedic [facility] [address] [facility] 160 [place] [address] 06/19/2025 3:00 PM EDT Office Visit Orthopedic [facility] [address] [phone] Julieta Kilgore MD Chronic right shoulder pain (Primary Dx); Chronic left shoulder pain 05/30/2025 12:48 PM EDT - 05/30/2025 11:59 PM EDT Hospital Encounter XRAY [address] [phone] Chronic pain of both knees Discharge Disposition: Home or Self Care 05/30/2025 12:30 PM EDT Office Visit Orthopedic[address] [phone] Jet Wynne PA Primary osteoarthritis of right knee (Primary Dx) 05/30/2025 Telephone [facility]monary [address] [place] [phone] Noam Moss MA 05/24/2025 10:30 AM EDT Office Visit Pulmonolgy - [address] [place] [address] Mis Espinoza MD WDAYNE (obstructive sleep apnea) (Primary Dx); Mild intermittent asthma without complication from Last 3 Months Immunizations Name Administration Dates Next Due H1N1 Inj Preservative Free 11/28/2009 Influenza Quadravalent, 0.5m l (Fluad) 65yo and older 09/22/2023 Influenza Quadravalent, 0.5m l (Fluzone High-dose) 65yo and older 10/04/2021 Influenza Quadravalent, MDCK , 0.5ml, preservative free (Flucelvax) 6mo and older 08/10/2018 Influenza Quadravalent, MDCK , 0.5ml, with preservative (Flucelvax) 6mo and older 08/16/2017 Influenza trivalent, 0.5mL ( Fluzone High-dose) 65yo and older 07/24/2024,08/05/2022,09/02/2020,09/06 Influenza trivalent, with pr eservative (Fluzone; Afluria) 6mo and older 10/13/2021,08/05/2016,08/12/2015,09/06,09/05/2013,08/24/2011,08/04/2010 ,08/14/2009,09/13/2008,08/26/2007,08/15 Pneumococcal conjugate 13 va lent (Prevnar 13, PCV13) 2mo and older 04/10/2015 Pneumococcal polysaccharide 23 valent (Pneumovax 23) 2yo and older 08/07/2019,06/09/2004,10/28/1998 RSV, bivalent, protein subun it RSVpreF, 0.5mL, Preservative Free (ABRYSVO) 60yo and older or 32 through 36 wks of 09/22/2023 Td Tetanus diptheria (Tdvax) 7yo and older 10/20/2021,08/21/2005 Tdap Tetanus diptheria acell ular pertussis (Boostrix; Adacel) 7yo and older 11/17/2011 Zoster Live 05/07/2016 Zoster recombinant (Shingrix ) 19yo and older 04/08/2021,10/09/2020 Surgical History Surgery Date Site/Laterality Comments TUBAL LIGATION age 29 WISDOM TOOTH EXTRACTION CATARACT EXTRACTION 2012,2013 Bilateral UPPER GASTROINTESTINAL ENDOSCOPY 12/30/2017 negative UPPER GASTROINTESTINAL ENDOSCOPY 07/03/2020 biopsy pending BREAST BIOPSY Left benign OTHER SURGICAL HISTORY Right : R hemithyroidectomy SCREENING MAMMOGRAM 10/28/2024 Bilateral Medical History Medical History Date Comments Essential hypertension, benign Lumbago Allergic rhinitis, cause unspecified 03/02/2006 Morbid obesity ([facility] [place] V24, [facility] [place] V28) 04/30/2016 Tubular adenoma 11/02/2016 : 10/30; repeat CN 2020 Gout 12/07/2016 DX:Gout Diabetes mellitus type 2 wit h neurological manifestations ([facility] [place] [place] V24, [facility] V28) 12/07/2016 Hyperlipidemia 03/02/2006 DWAYNE (obstructive sleep apnea) 07/15/2006 Cataract Type 2 diabetes mellitus wit h cataract ([facility] [place] V24, [facility] V28) 07/31/2013 GERD (gastroesophageal reflux disease) 7 IBS (irritable bowel syndrome) 05/30/2019 History of basal cell carcinoma 07/05/2019 : BCC 07/03 left lower lid/cheek junction (nodular) and right upper eyelid (BCC with a concomitant hydrocystoma favored ... there was an atypical apocrine neoplasm arising within the hydrocystoma) Globus sensation Gastritis Fatty liver Chronic ischemic heart disease COVID-19 virus infection 02/24/202212/06 Gastroparesis DM (diabetes mellitus), type 2 with renal complications ([facility] [place] V24, [facility] V28) 11/23/2024 Family History Medical History Relation Name Comments Stroke Father diabetes, hyper tension, DVT, glaucoma Diabetes Mother 92 Glaucoma Sister 1 Thyroid disease Sister 2 Other: vsd Son Breast cancer Neg Hx Colon cancer Neg Hx Ovarian cancer Neg Hx Uterine cancer Neg Hx Relation Name Status Comments Father Mother Alive Sister 1 Alive Sister 2 Alive Son Alive Social History Tobacco Use Types Packs/Day Years Used Date Smoking Tobacco: Never Smokeless Tobacco: Never Tobacco Cessation:Counseling Given: Not Answered Alcohol Use Standard Drinks/Week Comments No 0 (1 standard drink = 0.6 oz pur e alcohol) Housing Instability Answer Date Recorde d Are you worried that in the next 2 months you may not have stable housing? No 03/18/2025 Food Access & Nutrition Answer Date Rec orded Do you have access to a vari ety of food including fruits and vegetables? Yes 03/18/2025 Access to Healthcare Answer Date Record ed Within the last 3 months, ho w many times did you visit the emergency department for your medical care? 1 02/13/2025 Health Literacy Answer Date Recorded How often do you need to hav e someone help you when you read instructions, pamphlets, or other written material from your doctor or pharmacy? Never 03/18/2025 Caregiver: How often do you need to have someone help you when you read instructions, pamphlets, or other written material from your doctor or pharmacy? Not on file 03/18/2025 Financial Risk Answer Date Recorded How hard is it for you to pa y for the very basics like food, housing, medical care, and air conditioning / heating? Not very hard 03/18/2025 Transportation Answer Date Recorded Has the lack of transportati on kept you from meetings, work, or from getting things needed for daily living? No Has the lack of transportati on kept you from medical appointments or from getting medications? No 03/18/2025 Social Isolation Answer Date Recorded How often do you feel lonely or isolated from th ose around you? Never 03/18/2025 Food Risk Answer Date Recorded Within the past 12 months we worried whether our food would run out before we got money to buy more. Never true 03/18/2025 Within the past 12 months th e food we bought just didn't last and we didn't have money to get more. Never true 03/18/2025 Dependent Care Answer Date Recorded Do you need help finding or paying for care for your loved ones. For example, children's counselor or elderly care for an older adult? No 03/18/2025 Education Answer Date Recorded Do you think completing more education or training, like finishing a GED, going to college, or learning a trade, would be helpful for you? No 03/18/2025 Employment and Income Answer Date Recor ded During the last four weeks, have you been actively looking for work? No 03/18/2025 Living Situation Answer Date Recorded What is your living situation? 0 03/18/2025 Comments No Sex and Gender Information Value Date Recorded Sex Assigned at Female 12/18/2024 10:01 PM EST Legal Sex Female 9:23 AM EST Gender Identity Female 12/18/2024 10:01 PM EST Sexual Orientation Straight 12/18/2024 10 :01 PM EST Obstetrics History Para Term AB IAB SAB Ectopic Multiple Livin g Live Births 1 1 1 1 Date Outcome GA Total Labor Labor/2nd/3rd Weight Sex Type Anes PTL Dianne A1 A5 Name Clin Term Last Filed Vital Signs Vital Sign Reading Time Taken Comments Blood Pressure 138/64 06/25/2025 9:02 AM EDT Pulse 91 06/25/2025 9:02 AM EDT Temperature 35.7 C (96.2 F) 06/25/2025 9:02 AM EDT Respiratory Rate 18 06/25/2025 9:02 AM EDT Oxygen Saturation 96% 06/25/2025 9:02 AM EDT Inhaled Oxygen Concentration - - Weight 113 kg (250 lb) 06/28/2025 11:00 AM EDT Height 165.1 cm (5' 5 ) 06/28/2025 11:00 AM EDT Body Mass Index 41.6 06/28/2025 11:00 AM EDT Plan of Treatment Upcoming Encounters Date Type Department Care Team (Late st Contact Info) Description 11/01/2025 8:30 AM EST Office Visit Adult Medicine [facility] [address], [place] [phone] Imelda Camargo MD [address] [place], [place] 04/16/2026 1:15 PM EDT [facility] [address] [place] [phone] Sanchez Gutierrez MD [address] [phone] 05/27/2026 9:45 AM EDT Office Visit Pulmonolgy - [place] [address] [phone] Mis Espinoza MD [address] [phone] Health Maintenance Due Date Last Done Comments Hepatitis A Vaccines (1 of 2 - Risk 2-dose series) 1973 Hepatitis B Vaccines (1 of 3 - Risk 3-dose series) 2014 Diabetes: Annual Retina Eye Exam 02/01/2025 02/02/2024 COVID-19 Vaccine (8 - Pfizer risk season) 2025 08/15/2024, 08/05/2023, 09/14/2022, Additional history exists Influenza Vaccine (#1) 2025 , 07/24/2024, 09/22/2023, Additional history exists Diabetes: Annual Urine Albumin-Creatinine Ratio (uACR) 11/14/2025 11/14/2024 Diabetes: Blood Sugar Control Test (HGBA1C) 12/19/2025 06/18/2025, 03/13/2025, 11/14/2024, Additional history exists Diabetes: Annual Foot Exam 01/08/2026 01/08/2025, Diabetes: Annual GFR (Glomerular Filtration Rate) 03/13/2026 03/13/2025, 12/18/2024, 11/14/2024, Additional history exists Hypertension/CHF/CAD Annual BMP Blood Test 03/13/2026 03/13/2025, 12/18/2024, 11/14/2024, Additional history exists Social Influencers of Health Screening 03/18/2026 03/18/2025 Falls Risk Assessment 03/23/2026 03/23/2025 Medicare Annual Wellness Visit 03/23/2026 03/23/2025 Breast Cancer Screening 10/28/2026 10/28/20, 09/25/2023, 09/19/2022, Additional history exists Colorectal Cancer Screening: Colonoscopy 03/04/2027 03/04/2022 Cholesterol Screening (Lipid Panel) 11/14/2029 11/14/2024, 09/11/2024, 02/22/2024 DTaP,Tdap,and Td Vaccines (4 - Td or Tdap) 10/20/2031 10/20/2021, 11/17/2011, 08/21/2005 Osteoporosis Screening (Bone Density Screening) 10/04/2034 10/04/2019 Hepatitis C Screening Completed 10/03/2013 Pneumococcal Vaccine: 50+ Years Completed 08/07/2019, 04/10/2015, 06/09/2004, Additional history exists Zoster Vaccines Completed 04/08/2021, 09/16, 05/07/2016 RSV Immunization Adult Patients Completed 09/22/2023 Depression Screening Completed 03/18/2025 HIB Vaccines Aged Out No longer eligi ble based on patient's age to complete this topic HPV Vaccines Aged Out No longer eligi ble based on patient's age to complete this topic IPV Vaccines Aged Out No longer eligi ble based on patient's age to complete this topic MMR Vaccines Aged Out No longer eligi ble based on patient's age to complete this topic Meningococcal ACWY Vaccine Aged Out N o longer eligible based on patient's age to complete this topic Meningococcal B Vaccine Aged Out No l onger eligible based on patient's age to complete this topic RSV Immunization Patients Under 20 months Aged Out No longer eligible based on patient's age to complete this topic Varicella Vaccines Aged Out No longer eligible based on patient's age to complete this topic Procedures Procedure Name Priority Date/Time Associated Diagnosis Comments US ARTHROCENTESIS ASP INJ JOINT MAJOR RIGHT Routine 06/28/2025 11:30 AM EDT Chronic left shoulder pain CT ARTHROCENTESIS/ASPIRAT ION/INJECTION MAJOR JOINT/BURSA W/O U/S GUIDANCE Routine 06/28/2025 11:15 AM EDT Chronic left shoulder pain US ARTHROCENTESIS ASP INJ JOINT MAJOR RIGHT Routine 06/19/2025 3:22 PM EDT Chronic right shoulder pain XR SHOULDER 2+ VIEWS BILAT Routine 06/19/2025 3:02 PM EDT Chronic right shoulder pain CT ARTHROCENTESIS/ASPIRAT ION/INJECTION MAJOR JOINT/BURSA W U/S GUIDANCE Routine 06/19/2025 3:00 PM EDT Chronic right shoulder pain HEMOGLOBIN A1C Routine 06/18/2025 9:08 AM EDT Type II diabetes mellitus with neurological manifestations (CMS/HCC V24, CMS/HCC V28) Type 2 diabetes mellitus with stage 3a chronic kidney disease, without long-term current use of insulin (CMS/HCC V24, CMS/HCC V28) VITAMIN B12 Routine 06/18/2025 9:08 AM EDT Vitamin B12 deficiency XR KNEE 4+ VIEWS BILAT Routine 1:01 PM EDT Chronic pain of both knees CT ARTHROCENTESIS/ASPIRAT ION/INJECTION MAJOR JOINT/BURSA W/O U/S GUIDANCE Routine 05/30/2025 12:30 PM EDT Primary osteoarthritis of right knee CREATININE, SERUM Routine 03/13/2025 9:5 7 AM EDT Stage 3a chronic kidney disease (CMS/HCC V24, CMS/HCC V28) MICROALBUMIN CREATININE URINE RATIO Routine 11/14/2024 9:36 AM EST Type II diabetes mellitus with neurological manifestations (CMS/HCC V24, CMS/HCC V28) LIPID PANEL WITH REFLEX TO DIRECT LDL Routine 11/14/2024 9:36 AM EST Type II diabetes mellitus with neurological manifestations (CMS/HCC V24, CMS/HCC V28) MG MAMMO DIGITAL SCREENING W OZIEL BILAT Routine 10/28/2024 2:12 PM EST Encounter for screening mammogram for breast cancer DXA BONE DENSITY STUDY 1+ SITS AXIAL SKEL Routine 10/04/2019 1:16 PM EST Unspecified menopausal and perimenopausal disorder from Last 3 Months or Most Recently Relevant to Health Maintenance Results * US Arthrocentesis Asp Inj Joint Major Right (06/28/2025 11:30 AM EDT) Only the most recent of2 resultswithin the time period is included. Anatomical Region Laterality Modality Extremity Right Ultrasound Narrative 06/29/2025 1:44 PM EDT PROCEDURE Left glenohumeral injection for osteoarthritis. Risk including infection, post-injection steriod flare, hypopigmentation, neurovascular injury and fat atrophy, were thoroughly discussed with the patient. The patients understood the risks and gave verbal consent for the procedure. The posteriorlateral shoulder was prepped with Chloro-prep after anatomical landmarks where palpated and visualized with ultrasound. Ethyle chloride was used as to topical anesthetic. Then using a 23-gauge 3-1/2 inch needle lidocaine 2 mL was used as a local anesthetic. Kenalog 40 mg and lidocaine 3 cc were injected into the joint using sterile technique under ultrasound guidance without complications. The patient tolerated the procedure well. Aftercare was thoroughly discussed with the patient. Images were recorded and will permanently stored in patients medical record. us Julieta Kilgore MD IMG US PROCEDURES Final Result * CT ARTHROCENTESIS/ASPIRATION/INJECTION MAJOR JOINT/BURSA W/O U/S GUIDANCE (06/28/2025 11:15 AM EDT) Narrative Julieta Kilgore MD - 06/28/2025 11:15 AM EDT Julieta Kilgore MD 06/29/2025 1:45 PM L Inj/Asp: L glenohumeral Indications: pain Details: 22 G needle, posterior approach (guidance: US guided ) Medications: 3 mL lidocaine 1 %; 40 mg triamcinolone acetonide 40 mg/mL Outcome: tolerated well, no immediate complications Informed Consent: Laterality: Left Relevant images/test results available and reviewed: yes Health status cleared: Yes Procedure/treatment, purpose, treatment alternatives, risks/potential complications and benefits explained: yes Risk/complications/benefits details: Risks include bleeding, infection, increase in pain Patient questions answered: yes Patient agrees, verbalizes understanding, and wants to proceed: yes Consent given by: Patient Informed consent discussion completed by Physician/JARRETT with patient: Verbal Pre-procedure timeout performed: yes us Julieta Kilgore MD IN CLINIC/BEDSIDE ORDERABLES F inal Result * XR Shoulder 2+ Views bilat (06/19/2025 3:02 PM EDT) Anatomical Region Laterality Modality Upper Extremities, Shoulder Bilateral Comp uted Radiography 06/19/2025 7:13 PM EDT Impressions 06/19/2025 7:21 PM EDT Bilateral degenerative changes, right greater than left. POS - [id number] -------- FINAL REPORT -------- Dictated By: Aline Toscano Dictated Date: 06/19/2025 19:13 ET Assigned Physician: Aline Toscano Reviewed and Electronically Signed By: Aline Toscano Signed Date: 06/19/2025 19:21 ET Workstation ID: [id number] Transcribed By: Self Edit Transcribed Date: 06/19/2025 19:13 ET Narrative 06/19/2025 7:21 PM EDT EXAM: Bilateral shoulder x-ray HISTORY: Bilateral shoulder pain. COMPARISON: Left shoulder radiography 09/24/2022 and right shoulder radiography 04/06/2022 FINDINGS: 4 views of both shoulders performed. Right: Moderate degenerative changes again noted at the acromioclavicular joint and mild at the glenohumeral joint. Subacromial and greater tuberosity spurring have similar appearance. No acute fracture or dislocation. No destructive bone lesion. No soft tissue calcifications. Left: Mild to moderate degenerative changes again noted at the acromioclavicular joint and milder at the glenohumeral joint. Subacromial and greater tuberosity spurring have similar appearance. No acute fracture or dislocation. No destructive bone lesion. No soft tissue calcifications. Procedure Note Aline Toscano MD - 06/19/2025 EXAM: Bilateral shoulder x-ray HISTORY: Bilateral shoulder pain. COMPARISON: Left shoulder radiography 09/24/2022 and right shoulderradiography 04/06/2022 FINDINGS: 4 views of both shoulders performed. Right: Moderate degenerative changes again noted at the acromioclavicularjoint and mild at the glenohumeral joint. Subacromial and greatertuberosity spurring have similar appearance. No acute fracture ordislocation. No destructive bone lesion. No soft tissue calcifications. Left: Mild to moderate degenerative changes again noted at theacromioclavicular joint and milder at the glenohumeral joint. Subacromialand greater tuberosity spurring have similar appearance. No acute fractureor dislocation. No destructive bone lesion. No soft tissuecalcifications. IMPRESSION: Bilateral degenerative changes, right greater than left. POS - [id number] -------- FINAL REPORT -------- Dictated By: Aline Toscano Dictated Date: 06/19/2025 19:13 ET Assigned Physician: Aline Toscano Reviewed and Electronically Signed By: Aline Toscano Signed Date: 06/19/2025 19:21 ET Workstation ID: [id number] Transcribed By: Self Edit Transcribed Date: 06/19/2025 19:13 ET us Julieta Kilgore MD IMG XR PROCEDURES Final Result * CT ARTHROCENTESIS/ASPIRATION/INJECTION MAJOR JOINT/BURSA W U/S GUIDANCE (06/19/2025 3:00 PM EDT) Narrative Julieta Kilgore MD - 06/19/2025 3:00 PM EDT Julieta Kilgore MD 06/19/2025 3:57 PM L Inj/Asp: R glenohumeral Indications: pain Details: 22 G needle, ultrasound-guided posterior approach Medications: 3 mL lidocaine 1 %; 40 mg triamcinolone acetonide 40 mg/mL Outcome: tolerated well, no immediate complications Informed Consent: Laterality: Right Relevant images/test results available and reviewed: yes Health status cleared: Yes Procedure/treatment, purpose, treatment alternatives, risks/potential complications and benefits explained: yes Risk/complications/benefits details: Include bleeding, infection, increase in pain Patient questions answered: yes Patient agrees, verbalizes understanding, and wants to proceed: yes Consent given by: Patient Informed consent discussion completed by Physician/JARRETT with patient: Verbal Pre-procedure timeout performed: yes us Julieta Kilgore MD IN CLINIC/BEDSIDE ORDERABLES F inal Result * (ABNORMAL) Hemoglobin A1c (06/18/2025 9:08 AM EDT) Hemoglobin A1C 7.6(H) <6.5 % LAB CHEMISTRY METHOD 06/18/2025 11:28 AM EDT [facility] Mean Bld Glu Estim. 171 mg/dL LAB CHEMISTRY METHOD 06/18/2025 11:28 AM EDT [facility] Blood Venous blood specimen / Unknown Venipuncture / Unknown 06/18/2025 9:08 AM EDT 06/18/2025 9:08 AM EDT us Ebonie RAY LAB BLOOD ORDERABLES Final Re sult Performing Organization Address [facility] Co de Phone Number [facility] [address] [place] [address], [place] [phone] * (ABNORMAL) Vitamin B12 (06/18/2025 9:08 AM EDT) Vitamin B-12 201(L) 250 - 900 pcg/mL LAB CHEMISTRY METHOD 06/18/2025 2:19 PM EDT [facility] Blood Venous blood specimen / Unknown Venipuncture / Unknown 06/18/2025 9:08 AM EDT 06/18/2025 9:08 AM EDT us Ebonie RAY LAB BLOOD ORDERABLES Final Re sult Performing Organization Address [facility] de Phone Number [facility] [address] [place] [address], [place] [phone] * XR Knee 4+ Views bilat (05/30/2025 1:01 PM EDT) Anatomical Region Laterality Modality Lower Extremities, Knee Bilateral Radiogra phic Imaging 05/30/2025 7:46 PM EDT Narrative 05/30/2025 7:46 PM EDT Bilateral knees, 4 views of each. History joint pain. There is narrowing of the joint spaces medially. There are marginal osteophytes in the patellofemoral compartments as well as in the intercondylar notch. There is no fractures, dislocations or effusion. CONCLUSIONS: Degenerative changes as detailed. No fractures or dislocations. -------- FINAL REPORT -------- Dictated By: Aileen Lira Dictated Date: 05/30/2025 19:46 ET Assigned Physician: Aileen Lira Reviewed and Electronically Signed By: Aileen Lira Signed Date: 05/30/2025 19:46 ET Workstation ID: [id number] Transcribed By: Self Edit Transcribed Date: 05/30/2025 19:46 ET Procedure Note Aileen Lira MD - 05/30/2025 Bilateral knees, 4 views of each. History joint pain. There is narrowing of the joint spaces medially. There are marginalosteophytes in the patellofemoral compartments as well as in theintercondylar notch. There is no fractures, dislocations or effusion. CONCLUSIONS: Degenerative changes as detailed. No fractures ordislocations. -------- FINAL REPORT -------- Dictated By: Aileen Lira Dictated Date: 05/30/2025 19:46 ET Assigned Physician: Aileen Lira Reviewed and Electronically Signed By: Aileen Lira Signed Date: 05/30/2025 19:46 ET Workstation ID: [id number] Transcribed By: Self Edit Transcribed Date: 05/30/2025 19:46 ET us Jet RAY IMG XR PROCEDURES Final Result * CT ARTHROCENTESIS/ASPIRATION/INJECTION MAJOR JOINT/BURSA W/O U/S GUIDANCE (05/30/2025 12:30 PM EDT) Jet Dunbar PA - 05/30/2025 12:30 PM EDT FLOR Hernandez 05/30/2025 1:15 PM L Inj/Asp: R knee Indications: pain Details: 22 G needle, anterolateral approach Medications: 4 mL lidocaine 1 %; 80 mg methylPREDNISolone acetate 80 mg/mL Outcome: tolerated well, no immediate complications Informed Consent: Site: Knee Laterality: Right Relevant images/test results available and reviewed: yes Health status cleared: Yes Procedure/treatment, purpose, treatment alternatives, risks/potential complications and benefits explained: yes Risk/complications/benefits details: Risks include but are not limited to: The treatment may not accomplish the desired results. Additionally bleeding, infection, damage to tendon, nerve, cartilage, muscle; thinning or lightening of the skin in the area of injection; flushing or redness of the face, elevated blood pressure or blood sugar, allergic reaction, rash, increased pain Benefits include relief of inflammation and pain Patient questions answered: yes Patient agrees, verbalizes understanding, and wants to proceed: yes Consent given by: Patient Informed consent discussion completed by Physician/JARRETT with patient: Verbal Pre-procedure timeout performed: yes Jet RAY IN CLINIC/BEDSIDE ORDERABLES Fin al Result * (ABNORMAL) Creatinine (03/13/2025 9:57 AM EDT) Creatinine 1.37(H) 0.50 - 1.10 mg/dL LAB CHEMISTRY METHOD 03/13/2025 1:03 PM EDT [facility] eGFR 42(L) >=60 mL/min/1. 73m2 LAB CHEMISTRY METHOD 03/13/2025 1:03 PM EDT [facility] Comment:Calculation based on the Chronic Kidney Disease Epidemiology Collaboration (CKD-EPI) equation refit without adjustment for race. Blood Venous blood specimen / Unknown Venipuncture / Unknown 03/13/2025 9:57 AM EDT 03/13/2025 9:57 AM EDT Sanchez Gutierrez MD LAB BLOOD ORDERABLES Final Resu lt [facility] [address] [place] [address], [place] [phone] * Lipid panel with reflex to direct LDL (11/14/2024 9:36 AM EST) Cholesterol 149 0 - 200 mg/dL LAB CHEMISTRY METHOD 11/14/2024 12:45 PM EST [facility] Triglycerides 127 0 - 150 mg/dL LAB CHEMISTRY METHOD 11/14/2024 12:45 PM EST [facility] HDL 59 >=40 mg/dL LAB CHEMISTRY METHOD 11/14/2024 12:45 PM EST [facility] LDL Calculated 65 0 - 100 mg/dL LAB CHEMISTRY METHOD 11/14/2024 12:45 PM EST [facility] VLDL Cholesterol Tao 25.4 mg/dL LAB CHEMISTRY METHOD 11/14/2024 12:45 PM EST [facility] Non HDL Chol. (LDL+VLDL) 90 <145 mg/dL LAB CHEMISTRY METHOD 11/14/2024 12:45 PM EST [facility] Chol/HDL Ratio 2.5 0.0 - 4.4 LAB CHEMISTRY METHOD 11/14/2024 12:45 PM EST [facility] Blood Venous blood specimen / Unknown Venipuncture / Unknown 11/14/2024 9:36 AM EST 11/14/2024 9:36 AM EST us Imelda Camargo MD LAB BLOOD ORDERABLES Final Resul t Performing Organization Address City/[facility]/ZIP Co de Phone Number [facility] [address] [place] [address], [place] [phone] * (ABNORMAL) Microalbumin creatinine urine ratio (11/14/2024 9:36 AM EST) Creatinine, Urine 54.0 mg/dL LAB CHEMISTRY METHOD 11/14/2024 12:59 PM [facility] Microalb, Ur 126.0(H) 0.0 - 29.0 mg/L LAB CHEMISTRY METHOD 11/14/2024 12:59 PM EST [facility] Microalb/Crea t Ratio 233(H) <30 mg/g creat LAB CHEMISTRY METHOD 11/14/2024 12:59 PM EST [facility] Urine Urine specimen obtained by clean catch procedure / Unknown Non-blood Collection / Unknown 11/14/2024 9:36 AM EST 11/14/2024 9:36 AM EST us Imelda Camargo MD LAB URINE ORDERABLES Final Resul t [facility] [address] [place] [address], [place] [phone] * MG Mammo Digital Screening w Oziel bilat (10/28/2024 2:12 PM EST) Anatomical Region Laterality Modality Breast Bilateral Mammography 10/28/2024 4:23 PM EST Impressions 10/28/2024 4:28 PM EST No mammographic evidence for malignancy. BI-RADS CATEGORY: 1 - NEGATIVE RECOMMENDATION: Screening bilateral mammogram is recommended in 1 year. Screening bilateral mammogram is recommended in 1 year. -------- FINAL REPORT -------- Dictated By: Aileen Lira Dictated Date: 10/28/2024 16:23 ET Assigned Physician: Aileen Lira Reviewed and Electronically Signed By: Aileen Lira Signed Date: 10/28/2024 16:28 ET Workstation ID: [id number] Transcribed By: Self Edit Transcribed Date: 10/28/2024 16:23 ET Narrative 10/28/2024 4:28 PM EST EXAMINATION TYPE: MG MAMMO DIGITAL SCREENING W OZIEL BILAT DATE OF EXAM ORDERED: 10/28/2024 2:00 PM COMPARISON: Prior studies, latest from 09/25/2023. REASON FOR STUDY: Breast cancer screen, avg risk, asymptomatic (Age => 40y) TECHNIQUE: Bilateral mediolateral oblique and craniocaudal views were obtained digitally with 3-D mammogram (digital breast tomosynthesis) with CAD. Computer-aided detection was utilized in evaluation of this examination (SecondLook; iCAD). FINDINGS: The breast tissue distribution pattern is unchanged. There is no suspicious mass, suspicious calcifications or suspicious architectural distortion. BREAST DENSITY: B - There are scattered areas of fibroglandular density. Procedure Note Aileen Lira MD - 10/28/2024 EXAMINATION TYPE: MG MAMMO DIGITAL SCREENING W OZIEL BILAT DATE OF EXAM ORDERED: 10/28/2024 2:00 PM COMPARISON: Prior studies, latest from 09/25/2023. REASON FOR STUDY: Breast cancer screen, avg risk, asymptomatic (Age =>40y) TECHNIQUE: Bilateral mediolateral oblique and craniocaudal views wereobtained digitally with 3-D mammogram (digital breast tomosynthesis) withCAD. Computer- aided detection was utilized in evaluation of thisexamination (SecondLook; iCAD). FINDINGS: The breast tissue distribution pattern is unchanged. There is nosuspicious mass, suspicious calcifications or suspicious architecturaldistortion. BREAST DENSITY: B - There are scattered areas of fibroglandular density. IMPRESSION: No mammographic evidence for malignancy. BI-RADS CATEGORY: 1 - NEGATIVE RECOMMENDATION: Screening bilateral mammogram is recommended in 1 year. Screeningbilateral mammogram is recommended in 1 year. -------- FINAL REPORT -------- Dictated By: Aileen Lira Dictated Date: 10/28/2024 16:23 ET Assigned Physician: Aileen Lira Reviewed and Electronically Signed By: Aileen Lira Signed Date: 10/28/2024 16:28 ET Workstation ID: [id number] Transcribed By: Self Edit Transcribed Date: 10/28/2024 16:23 ET us Imelda Camargo MD IMG BI PROCEDURES Final Result * DXA BONE DENSITY STUDY 1+ SITS AXIAL SKEL (10/04/2019 1:16 PM EST) Anatomical Region Laterality Modality Bone Densitometr y 08/21/2019 10:5 7 AM EDT Narrative 10/04/2019 1:55 PM EST BONE DENSITY (DEXA) Lumbar Spine T-score is 3.6. (SD relative to 20-29 y/o adult) Z-score is 4.7. (SD relative to age matched peers) This is considered normal by WHO criteria. Left Hip T-score is 0.2. Z-score is 0.7. This is considered normal by WHO criteria. IMPRESSION: This patient is considered to have normal bone density by WHO criteria. [facility] Department of Internal Medicine recommends using National Osteoporosis Foundation (NOF) guidelines in treatment decisions related to osteoporosis. NOF guidelines suggest considering treatment for postmenopausal women and men aged 50 or older presenting with the following: History of hip or vertebral fracture. T-score = -2.5 (DXA) at the femoral neck, total hip, or spine, after appropriate evaluation to exclude secondary causes. Low bone mass (T-score between -1.0 and -2.5 at the femoral neck or spine) AND a 10-year probability of a hip fracture = 3% OR a 10-year probability of a major osteoporosis-related fracture = 20% based on the [place]-adapted WHO algorithm Please note that all treatment decisions require clinical judgment and consideration of individual patient factors, including patient preferences, co-morbidities, previous drug use, risk factors not captured in the FRAX model (e.g., frailty, falls, vitamin D deficiency, increased bone turnover, interval significant decline in bone density) and possible under- or over-estimation of fracture risk by FRAX. Optional alternative screening schedule based on katerin Doan., [facility] December 03, 2011 for patients with osteopenia (based on hip BMD T-score) is as follows: * advanced osteopenia (T scores -2.00 to -2.49), BMD testing every year * moderate osteopenia (T scores -1.50 to -1.99), BMD testing every 5 years mild osteopenia or normal BMD (T scores -1.50 and higher), BMD testing every 15 years Procedure Note Magdalene Pride - 11/03/2022 BONE DENSITY (DEXA) Lumbar Spine T-score is 3.6. (SD relative to 20-29 y/o adult) Z-score is 4.7. (SD relative to age matched peers) This is considered normal by WHO criteria. Left Hip T-score is 0.2. Z-score is 0.7. This is considered normal by WHO criteria. IMPRESSION: This patient is considered to have normal bone density by WHO criteria. [facility] Department of Internal Medicine recommendsusing National Osteoporosis Foundation (NOF) guidelines in treatment decisions related toosteoporosis. NOF guidelines suggest considering treatment for postmenopausal women and menaged 50 or older presenting with the following: History of hip or vertebral fracture. T-score = -2.5 (DXA) at the femoral neck, total hip, or spine, afterappropriate evaluation to exclude secondary causes. Low bone mass (T-score between -1.0 and -2.5 at the femoral neck or spine)AND a 10-year probability of a hip fracture = 3% OR a 10-year probability of a majorosteoporosis-related fracture = 20% based on the [place]-adapted WHO algorithm Please note that all treatment decisions require clinical judgment andconsideration of individual patient factors, including patient preferences, co- morbidities,previous drug use, risk factors not captured in the FRAX model (e.g., frailty, falls, vitaminD deficiency, increased bone turnover, interval significant decline in bone density) andpossible under- or over-estimation of fracture risk by FRAX. Optional alternative screening schedule based on bro Doan al., NEJMJanuary 2011 for patients with osteopenia (based on hip BMD T-score) is as follows: * advanced osteopenia (T scores -2.00 to -2.49), BMD testing every year * moderate osteopenia (T scores -1.50 to -1.99), BMD testing every 5years mild osteopenia or normal BMD (T scores -1.50 and higher), BMD testingevery 15 years Imelda Camargo MD IMG DXA PROCEDURES Final Result from Last 3 Months or Most Recently Relevant to Health Maintenance Insurance [employer]ARE [employer] Advance Directives Documents on File Type Date Recorded 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 Health Care Decision (hx) 07/08/2018 AD EARLY DIRECTIVE Health Care Decision (hx) 07/08/2018 AD EARLY DIRECTIVE Health Care Decision (hx) 07/08/2018 AD EARLY DIRECTIVE Health Care Decision (hx) 07/08/2018 AD EARLY DIRECTIVE Health Care Decision (hx) 07/08/2018 AD EARLY DIRECTIVE Health Care Decision (hx) 07/08/2018 AD EARLY DIRECTIVE Health Care Decision (hx) 07/08/2018 AD EARLY DIRECTIVE Health Care Decision (hx) 07/08/2018 AD EARLY DIRECTIVE Health Care Decision (hx) 07/08/2018 AD EARLY DIRECTIVE Health Care Decision (hx) 07/08/2018 AD EARLY DIRECTIVE Health Care Decision (hx) 07/08/2018 AD EARLY DIRECTIVE Health Care Decision (hx) 07/08/2018 AD EARLY DIRECTIVE Health Care Decision (hx) 07/08/2018 AD EARLY DIRECTIVE Health Care Decision (hx) 07/08/2018 AD EARLY DIRECTIVE Health Care Decision (hx) 07/08/2018 AD EARLY DIRECTIVE Health Care Decision (hx) 07/08/2018 AD EARLY DIRECTIVE Health Care Decision (hx) 07/08/2018 AD EARLY DIRECTIVE Health Care Decision (hx) 07/08/2018 AD EARLY DIRECTIVE Health Care Decision (hx) 07/08/2018 AD EARLY DIRECTIVE Health Care Decision (hx) 07/08/2018 AD EARLY DIRECTIVE Health Care Decision (hx) 07/08/2018 AD EARLY DIRECTIVE Health Care Decision (hx) 07/08/2018 AD EARLY DIRECTIVE Care Teams Resourcing Advisor Relationship Specialty Start Date End Date Imelda Camargo MD [address] [place] [phone] PCP - General Internal Medicine 11/18/15
[2025-08-03 10:08] VITALS: BMI 39.8
[2025-08-03 10:20] VITALS: BP 156/79; PULSE 81; RESP 16; TEMP 36.2; O2SAT 97
[2025-08-03] MEDS: Lactated Ringers 1,000 ML 50 ML IVCONT (10:27)
[2025-08-03 10:34] LABS: Glucose, Whole Blood 154 mg/dL (60-115)
--- NOTE | 2025-08-03 11:50 | HO.ANESPROP2 ---
[facility] Active Problems Active Problems: All Active Problems Arthritis of right hip (Acute) Right hip pain (Acute) Bilateral acute otitis media (Acute) Past Medical History Medical History Fatty liver COVID-19 Neuropathy Sleep apnea CKD (chronic kidney disease) stage 3, GFR 30-59 ml/min Chest pain Hx of skin cancer, basal cell Back pain Lumbar disc disease Diabetes Irritable bowel syndrome (IBS) GERD (gastroesophageal reflux disease) DWAYNE on CPAP Asthma Elevated cholesterol HTN (hypertension) Family History Family history of problems with anesthesia: No Surgical History Surgical History Hx of wisdom tooth extraction Hx of tubal ligation Hx of appendectomy Hx of partial thyroidectomy Hx of colonoscopy History of esophagogastroduodenoscopy (EGD) History of Problems with Anesthesia: No Social History Social History (Updated 10/12/23 @ 10:47 by Maia Bah [facility]) Are you a primary hourly caregiver to a significant other at home: Yes (mother, will have help post-op) Do you presently have visiting nurse or other home services: Yes (services at home for mother) Patient Tobacco Use Status: Never used Tobacco Use of substances other than those prescribed or required for medical reasons: No Are you DNR?: No Advance Directives: No Advance Directives Information Provided: Yes Current occupational status: retired Meds Allergies Allergy/AdvReac Type Severity Reaction Status Date / Time cefaclor (From CECLOR) Allergy Severe ITCHING Verified 11/22/23 09:43 ciprofloxacin (CIPROFLOXACIN) Allergy Severe ITCHING Verified 11/22/23 09:43 erythromycin base Allergy Severe Itching, Verified 11/22/23 09:43 (ERYTHROMYCIN BASE) hives Penicillins (PENICILLINS) Allergy Severe ITCHING Verified 11/22/23 09:43 Sulfa (Sulfonamide Allergy Severe Itching Verified 11/22/23 09:43 Antibiotics) sulfamethoxazole (From Allergy Severe ITCHING Verified 11/22/23 09:43 BACTRIM) trimethoprim (From BACTRIM) Allergy Severe ITCHING Verified 11/22/23 09:43 amlodipine Allergy Hives Verified 11/22/23 09:43 clindamycin Allergy Itching Verified 11/22/23 09:43 insulin detemir (From Allergy muscle Verified 11/22/23 09:43 Levemir U-100 Insulin) cramping isosorbide Allergy Headache Verified 11/22/23 09:43 liraglutide (From Victoza) Allergy dizzy Verified 11/22/23 09:43 magnesium sulfate Allergy Itching Verified 11/22/23 09:43 pregabalin (From Lyrica) Allergy burning Verified 11/22/23 09:43 sensation on skin sucralfate (From Carafate) Allergy hives/urtic Verified 11/22/23 09:43 aria IC acetic Allergy Severe Itching Uncoded 11/22/23 09:43 ENVIRONMENTAL Allergy Unknown HEADACHES Uncoded 11/22/23 09:43 lantus Allergy Muscle Pain Uncoded 11/22/23 09:43 vitamin B12 Allergy Unknown Uncoded 11/22/23 09:43 Active Medications: Current Medications Lactated Ringer's (Lr) 1,000 mls @ 50 mls/hr IVCONT .Q20H FALGUNI Last Admin: 08/03/25 10:27 Dose: 50 mls/hr Sodium Biphosphate/Sodium Phosphate (Sodium Phosphate,Dougherty-Dibasic 133 Ml Enema) 133 ml NC ONCE PRN PRN Reason: Poor Colonoscopy Prep Results Home Medications ?Medication ?Instructions ?Recorded ?Confirmed ?Last Taken ?Type allopurinol 300 mg tablet 100 mg PO DAILY 08/29/21 08/03/25 Unknown History metformin 850 mg tablet 850 mg PO BID 08/29/21 08/03/25 Unknown History pravastatin 80 mg tablet 80 mg PO BEDTIME 08/29/21 08/03/25 Unknown History aspirin 81 mg tablet,delayed 81 mg PO DAILY 02/24/22 08/03/25 07/27/25 History release cetirizine 10 mg capsule (Zyrtec) 10 mg PO DAILY 02/24/22 08/03/25 08/03/25 History lancets (Accu-Chek Softclix #100 ea 10/12/23 08/03/25 Unknown History Lancets) nifedipine 30 mg tablet,extended 30 mg PO DAILY 10/12/23 08/03/25 Unknown History release pantoprazole 40 mg tablet,delayed 40 mg PO DAILY 11/22/23 08/03/25 08/03/25 History release cholecalciferol (vitamin D3) 50 50 mcg PO DAILY 08/01/25 08/03/25 Unknown History mcg (2,000 unit) capsule (Vitamin D3) magnesium oxide 400 mg (241.3 mg 400 mg PO BID 08/01/25 08/03/25 Unknown History magnesium) tablet metoclopramide HCl 10 mg tablet 10 mg PO QID 08/01/25 08/03/25 Unknown History conjugated estrogens 0.625 mg/gram 500 mg vaginal 3XW 08/03/25 08/03/25 Unknown History vaginal cream (Premarin) fluticasone propionate 50 2 spray intranasal DAILY 08/03/25 08/03/25 08/03/25 History mcg/actuation nasal spray,suspension Exam Height,Weight and Vital Signs: Height 5 ft 5 in Weight 108.409 kg Last Vital Signs Temp 97.2 F 08/03/25 10:20 Pulse 81 08/03/25 10:20 Resp 16 08/03/25 10:20 BP 156/79 H 08/03/25 10:20 Pulse Ox 97 08/03/25 10:20 O2 Del Method Room Air 08/03/25 10:20 Pertinent Lab Results Pertinent Lab Results: Laboratory Tests 08/03/25 10:29 POC Glucose 154 H Airway Mallampati Class: II (missing a couple, denies anything loose) TM Dist: >3cm Neck ROM: Full Heart: rrr Lungs: cta Assessment and Plan Assessment Anesthesia Assessment: Anesthesia Plan Discussed and Chart Reviewed Final Anesthetic Review Family History of Problems with Anesthesia: No History of Problems with Anesthesia: No NPO: Yes ASA Class: III Final Preanesthetic Review: No Changes in Pt Med Stat, Meds/Allgs Chart Reviewed and Consent Obtained/Reviewed Patient Risk: Low Procedure Risk: Low Anesthetic Plan Anesthetic Plan: MAC: Disposition: Standard PACU
[2025-08-03 12:58] VITALS: BP 128/75; PULSE 75; RESP 16; TEMP 36.3; O2SAT 97
--- NOTE | 2025-08-03 12:59 | P.BOP_ITS ---
Brief Operative Note Date of Service: 08/03/25 Pre-op diagnosis: Screening Post-op diagnosis: other (Diverticulosis) Procedure: Colonoscopy to the cecum Surgeon: Norman Aquino MD Anesthesia: MAC Was an Computer Lab Para Professional used for this Procedure?: No Estimated blood loss (mL): 0 Pathology: none sent Condition: stable Disposition: PACU
[2025-08-03 13:09] VITALS: BP 130/73; PULSE 75; RESP 16; TEMP 36.1; O2SAT 97
--- NOTE | 2025-08-03 13:34 | OP_ITS ---
DATE OF SERVICE: 08/03/2025 SURGEON: Norman Aquino MD INDICATIONS: The patient presents for evaluation of personal history of colon polyps and need for colorectal cancer screening. Full consent has been obtained from her for this, including risks of bleeding and perforation. PREOPERATIVE DIAGNOSIS: POSTOPERATIVE DIAGNOSIS: PROCEDURE PERFORMED: Colonoscopy to the cecum. ESTIMATED BLOOD LOSS: COMPLICATIONS: ANESTHESIA: Monitored anesthesia care. ASSISTANTS: SPECIMENS: PREOPERATIVE DIAGNOSES: Colorectal cancer screening and personal history of colon polyps. POSTOPERATIVE DIAGNOSES: Colorectal cancer screening and personal history of colon polyps, diverticulosis, and internal hemorrhoids. DESCRIPTION OF PROCEDURE: The patient was placed in the left lateral decubitus position. The digital rectal exam revealed no abnormalities. The Olympus video pediatric colonoscope was entered into the rectum and advanced to the cecum with the assistance of abdominal wall pressure. Once in the cecum, I did identify normal-appearing cecal pouch with appendiceal orifice and a normal-appearing ileocecal valve. The entire cecum was well visualized and appeared normal. The ileocecal valve appeared normal. The scope was slowly withdrawn assessing all mucosal surfaces carefully. Preparation was excellent. There were occasional diverticula in the ascending colon. There was a mild to moderate amount of diverticulosis in the sigmoid colon. I did not visualize any sign of polyps, colitis, nor angiodysplasia. In the rectum, scope was retroflexed visualizing internal hemorrhoids, but no other pathology. The rectal mucosa appeared normal. Scope was straightened and withdrawn from the patient. She tolerated the procedure well and was returned to the recovery area in stable condition. IMPRESSION: 1. Diverticulosis. 2. Internal hemorrhoids. PLAN: Given her previous history of a fairly large tubulovillous adenomas removed in the past, I would recommend a repeat colonoscopy in 3 years for further screening and surveillance. She will otherwise see me on a p.r.n. basis. She was advised that she could resume her aspirin today. Norman Aquino MD RMAngela/LYNDONL / [id number]
== END 2025-08-03 13:44 | disposition home or self-care (01) ==
PROVIDERS: PCP Internal Medicine; Visit Provider Internal Medicine
PROC: 0DJD8ZZ Inspection of Lower Intestinal Tract, Via Natural or Artificial Opening Endoscopic (ICD-10-PCS; CPT 45378; principal; 2025-08-03 11:10)
DX: Z12.11 Encounter for screening for malignant neoplasm of colon (principal); Z86.0101 Personal history of adenomatous and serrated colon polyps; K57.30 Diverticulosis of large intestine without perforation or abscess without bleeding; K64.8 Other hemorrhoids; K58.2 Mixed irritable bowel syndrome; K21.9 Gastro-esophageal reflux disease without esophagitis; E11.22 Type 2 diabetes mellitus with diabetic chronic kidney disease; I12.9 Hypertensive chronic kidney disease with stage 1 through stage 4 chronic kidney disease, or unspecified chronic kidney disease; N18.30 Chronic kidney disease, stage 3 unspecified; G62.9 Polyneuropathy, unspecified; E78.5 Hyperlipidemia, unspecified; J45.909 Unspecified asthma, uncomplicated; G47.33 Obstructive sleep apnea (adult) (pediatric); Z79.82 Long term (current) use of aspirin; Z79.51 Long term (current) use of inhaled steroids; Z79.84 Long term (current) use of oral hypoglycemic drugs; Z79.899 Other long term (current) drug therapy; Z99.89 Dependence on other enabling machines and devices; Z88.0 Allergy status to penicillin; Z88.1 Allergy status to other antibiotic agents; Z88.2 Allergy status to sulfonamides; Z88.8 Allergy status to other drugs, medicaments and biological substances
CPT/HCPCS: G0105; 82947; J2003; J2704; J3010